=== PATIENT | female | born 1970 | race Caucasian/White ===

== ENCOUNTER → 2016-10-30 | Outpatient (CLI) | payer BC ==
--- NOTE | ~2016-10-30 | US85 ---
[facility] A Service of [facility] RADIOLOGY TEXT RESULTS PATIENT: MOLLY BUTT LOCATION: SNIV : 70 UNIT #: [id number] AGE: [address]: Mango Maravilla MD SEX: F ORDER DR: [id number] [place] [id number] O MR#: [id number] Acc #: [id number] NAME: MOLLY BUTT : 1970 SEX: F STUDY DATE/TIME: 10/30/2016 16:17 UNIT: SNIV ROOM: STUDY DESCRIPTION: [facility] [employer] [facility] [employer] [facility] Attending Physician: Parul Maravilla M.D. Referring Physician: Parul Maravilla M.D. Ordering Physician: Parul Maravilla M.D. Primary Care Physician: Trae Johnson M.D. MEDICAL IMAGING REPORT This report is preliminary unless electronic signature is present. EXAM Color Doppler ultrasound examination of the right lower extremity HISTORY Posterior knee pain for the past day with previous history of knee surgery in September. TECHNIQUE Ultrasound evaluation was performed with castro-scale color-flow and Doppler spectral waveform analysis. FINDINGS The examination is negative. There is no evidence of right lower extremity deep venous thrombus from the groin to the lower calf. Visualized greater saphenous vein is also patent. IMPRESSION Negative examination. No evidence of right lower extremity deep venous thrombosis. STAT * RESULT Dictated by... Demian Mcclelland M.D. [facility] A Service of [facility] RADIOLOGY TEXT RESULTS PATIENT: MOLLY BUTT LOCATION: SNIV : 70 UNIT #: [id number] AGE: [address]: Mango Maravilla MD SEX: F ORDER DR: THIS IS AN ELECTRONICALLY VERIFIED REPORT Demian Mcclelland M.D. at 10/31/2016 4:54 PM KAREN/nancy TD: 10/30/2016 16:49 JOB #: [id number] MEDICAL IMAGING REPORT Page 1 of 1
== END | disposition home or self-care (01) ==
LOC: SNIV 15:28
DX: M79.604 Pain in right leg (principal); M79.89 Other specified soft tissue disorders
CPT/HCPCS: 93971